=== PATIENT | female | born 1995 ===

== ENCOUNTER 2022-05-04 12:45 | Outpatient (RCR) | payer SELFPAY | END 2022-05-07 | disposition home or self-care (01) | LOC: WSPT | DX: S43.431A Superior glenoid labrum lesion of right shoulder, initial encounter (principal); X58.XXXA Exposure to other specified factors, initial encounter ==

== ENCOUNTER 2022-11-03 08:15 | Outpatient (RCR) | payer OTHER | END 2022-11-05 | disposition home or self-care (01) | LOC: WSPT | DX: M75.101 Unspecified rotator cuff tear or rupture of right shoulder, not specified as traumatic (principal) ==

== ENCOUNTER 2022-12-03 09:45 | Outpatient (RCR) | payer OTHER | END 2022-12-05 | disposition home or self-care (01) | LOC: WSPT | DX: S43.431D Superior glenoid labrum lesion of right shoulder, subsequent encounter (principal); X58.XXXD Exposure to other specified factors, subsequent encounter ==

== ENCOUNTER 2024-05-01 13:47 | Emergency (ER) | payer OTHER ==
[~2024-05-01] VITALS: Ht 175.3 cm; Wt 102.3 kg
[2024-05-01 13:54] VITALS: TEMP 98.4
[2024-05-01] MEDS ORDERED: Ketorolac 60 MG/2 ML VIAL IM ONE (14:30)
[2024-05-01] MEDS ORDERED: oxyCODONE/Acetaminophen 5-325 MG TAB PO ONE (15:15)
[2024-05-01] MEDS ORDERED: PERCOCET 325 MG1 TA2 PO (16:25)
[2024-05-01] MEDS ORDERED: Home oxyCODONE/Acetaminophen 5/325 MG #4 TAB/PACK PO ONE (16:30)
[2024-05-01 16:36] VITALS: BP 114/79; PULSE 85
== END 2024-05-01 16:43 | disposition home or self-care (01) ==
LOC: COL.ER 13:47
DX: M54.50 Low back pain, unspecified (principal); Z91.040 Latex allergy status
CPT/HCPCS: J1885; J2360